=== PATIENT | female | born 1945 | race Caucasian/White ===

== ENCOUNTER → 2017-11-05 | Outpatient (CLI) | payer OTHER | LOC: FIMAGING 14:58 | PROVIDERS: ATTEND Family Medicine | DX: M85.89 Other specified disorders of bone density and structure, multiple sites (principal) ==

== ENCOUNTER 2018-03-25 16:02 | Emergency (ER) | payer OTHER ==
[2018-03-25 16:23] VITALS: BP 173/86
--- NOTE | 2018-03-25 17:37 | EDPHY ---
General Time Seen by Provider: 03/25/18 17:05 Narrative: CHIEF COMPLAINT: Right toe pain HISTORY OF PRESENT ILLNESS: Patient presents with complains of the right 4th toe that occurred 2 weeks ago when she "stubbed it on something."She does not know what it was. She states that it was something inside her house. She felt a sudden onset of pain in the 4th toe on the right foot. It has been constant. Worse with palpation and walking. Radiates to the proximal midfoot. No numbness or doing but no weakness. No injury or pain or else. No improved with [id number] anti- inflammatories. Some improved with ice. No other associated complaints or modifying factors REVIEW OF SYSTEMS: 10 systems were reviewed and negative with the exception of the elements mentioned in the history of present illness. PCP: [facility], Dr. Zapata SPECIALISTS: None PAST MEDICAL HISTORY: Hypertension PAST SURGICAL HISTORY: No recent surgical history SOCIAL HISTORY: Nonsmoker FAMILY HISTORY: Lives independently. EXAMINATION: General Appearance: Alert, no distress Cardiovascular: Regular rate. Symmetric DP and PT pulses 2+. Good signs of perfusion of the right foot. Neurological: A&O, light sensory is symmetric to the lower extremities. Strength is symmetric in the great toes. No footdrop Skin: Warm and dry, no rash. Ecchymosis to the right 4th toe and distal right 4th metatarsal. No puncture laceration. Extremities: Tenderness of the right 4th toe over the proximal phalanx. There is no tenderness of the right midfoot, right calcaneus, right proximal fibula. Range of motion lower extremities symmetric. All compartments are soft the right lower extremity. No pedal edema. Psychiatric: Mood and affect normal DIFFERENTIAL DIAGNOSES: Including but not limited to sprain, strain, fracture, dislocation, subluxation MDM: 5:06 p.m. Injury to the right 4th toe 2 weeks ago with increasing pain, swelling and bruising today. No pain in the midfoot, ankle, calf or knee. No signs of compartment syndrome, DVT or infection. X-ray of the foot was ordered prior to my evaluation. 5:30 p.m. X-ray as read by me, without radiologist, fracture at the base of the 1st phalanx of the 4th toe on the right foot. I do not appreciate a midfoot fracture 2nd fractures. We discussed bianca taping postoperative shoe. We discussed ice, elevation anti-inflammatories. We discussed definitive care with orthopedist or blood bank technician. She is comfortable this plan. She has ambulated with she without difficulty. Discharged home stable condition per SUPERVISION: This patient was independently evaluated without direct involvement of or examination by the attending physician. CONSULTATION: None. Orthopedic referral - Diagnostics Imaging Results: Imaging Impressions Foot X-Ray 03/25/18 16:23 Impression: Nondisplaced oblique fracture in the diaphyseal shaft of the fourth proximal phalanx. Imaging: I viewed and interpreted images myself - History Smoking Status: Former smoker - Objective Vital Signs: Initial Vital Signs Temperature (C) 97.7 F 03/25/18 16:21 Heart Rate 70 03/25/18 16:21 Respiratory Rate 16 03/25/18 16:21 Blood Pressure 173/86 H 03/25/18 16:21 O2 Sat (%) 96 03/25/18 16:21 O2 Delivery Mode Room Air Allergies/Adverse Reactions: No Known Allergies Allergy (Unverified 03/25/18 16:21) Home Medications: Medication Instructions Recorded Lisinopril 03/25/18 Departure - Departure Disposition: Home, Routine, Self-Care Clinical Impression: Toe fracture, right Qualifiers: Encounter type: initial encounter Toe: lesser toe Fracture type: closed Phalanx : proximal Fracture alignment: nondisplaced Qualified Code(s): S92.514A - Nondisplaced fracture of proximal phalanx of right lesser toe(s), initial encounter for closed fracture Condition: Good Instructions: Toe Fracture (ED) Additional Instructions: 1. Ice, elevation anti-inflammatories as discussed as needed 2. Postoperative shoe and bianca tape the affected toe as needed 3. Follow up with orthopedist or blood bank technician for definitive care Referrals: Armando Zapata MD [Medical Doctor] - As per Instructions Jean Carlos Castro MD [Medical Doctor] - As per Instructions
== END 2018-03-25 17:40 | disposition home or self-care (01) ==
DX: S92.514A Nondisplaced fracture of proximal phalanx of right lesser toe(s), initial encounter for closed fracture (principal); W22.09XA Striking against other stationary object, initial encounter; Y92.019 Unspecified place in single-family (private) house as the place of occurrence of the external cause; Y99.8 Other external cause status

== ENCOUNTER → 2018-04-16 | Outpatient (CLI) | payer OTHER | LOC: FIMAGING 15:14 | PROVIDERS: ATTEND Physician Assistant | DX: Z12.31 Encounter for screening mammogram for malignant neoplasm of breast (principal) ==